=== PATIENT | female | born 1955 | race Caucasian/White ===

== ENCOUNTER 2025-04-10 07:46 | Emergency (ER) | payer MEDICARE, BC ==
[~2025-04-10] VITALS: Ht 167.6 cm; Wt 73.0 kg
[~2025-04-10 07:46] MED LIST: ATOR10TA87 PO; CELE-193 PO; ESCI20TA29 PO; FAMO10TA PO; OMEG1CAP61 PO
[2025-04-10 08:07] VITALS: TEMP 98.4
--- NOTE | 2025-04-10 08:26 | Physician Documentation ---
History of Present Illness ~ Chief Complaint: Allergic Reaction Stated Complaint: BEE STING Time Seen by MD: 08:09 Source: patient (8) Mode of Arrival: Ambulatory HPI Patient comes in for evaluation of to wasp stings to her right arm. She had previously had a history of reactions to stings, but did not have an EpiPen with her. The stings occurred last night at 7:00 p.m., patient reports local redness and swelling and pain but no facial swelling, no shortness a breath, no faintne ss or any other systemic injury. She took Benadryl, cortisone, and used ice, and was coming in for concern for possible infection. Medication Reconciliation Allergies: Coded Allergies: dupilumab (Verified Allergy, Intermediate, Rash, 04/10/25) hydromorphone (Verified Allergy, Intermediate, SEVERE RASH, 10/31/12) Scheduled Atorvastatin Calcium* (Lipitor*), 10 MG PO DAILY, (Reported) Celecoxib* (Celebrex*), 200 MG PO BID, (Reported) Escitalopram Oxalate* (Lexapro*), 20 MG PO DAILY, (Reported) Lennon-3 Acid Ethyl Esters* (Lovaza*), 2 GM PO BID, (Reported) Miscellaneous Medications Famotidine (Acid Journeyman Molder), 10 MG PO, (Reported) Past Medical History Past Medical History: High Cholesterol, *MUSCULOSKELETAL* (Psoriatic arthritis) Smoking Status: Light Tobacco User (Vapes) Alcohol Use: Occasionally Drug Use: marijuana Review of Systems All Other Systems at this time: Reviewed and Negative Physical Exam Vital Signs: Temperature: 98.4, Source: Oral, Heart Rate: 61, Respiratory Rate: 18, BP: 129/84, Pulse Oximetry: 98, Weight: 72.950 Oxygen Flow Rate: 0 Physical Exam General: Pt is awake, alert, oriented x4 in no acute distress and well appearing. Head: Normocephalic and atraumatic. Eyes: Conjunctiva normal. ENT: Mucous membranes moist. Neck: Supple. Chest: Clear to auscultation bilaterally, without rales, rhonchi, or wheezes. There is no accessory muscle use or retractions. Cardiac: Regular rate and rhythm without murmurs, gallops or rubs. Palpation of the chest wall is normal. Abd: Soft, nondistended, nontender, with normoactive bowel sounds. No guarding or rebound. Extremities: Within normal limits without cyanosis, clubbing, or edema. Skin: [place], warm and dry with no significant rash appreciated. She has a well demarcated area over her right elbow both proximally and distally to the olecranon which has some urticarial characteristics, with intradermal edema and erythema. This is slightly raised, no surrounding cellulitis noted. Neuro: Cranial nerves II-XII grossly intact. Motor and sensory intact in the hand in the median/radial/ulnar nerve distribution. The gait is normal. Progress Results/Orders Results/Orders Orders - BRAXTON DOUGLAS MD Ortho Orders (04/10/25 08:22) Vital Signs 04/10/25 04/10/25 04/10/25 07:46 08:00 08:07 Temp 97.2 98.4 Pulse 60 61 Resp 15 18 B/P (MAP) 157/77 129/84 (99) Pulse Ox 98 98 O2 Flow Rate 0 Re-Evaluation Re-Evaluation : Re-Evaluation Time: 08:23 Progress Erythematous area demarcated with a skin pen Medical Decision Making Differential Diagnosis Patient presenting status post significant insect envenomation with local reaction. There was no evidence for cellulitis, and it is temporarily too early to be seeing cellulitis, although the local reaction is impressive. No systemic symptoms or anaphylaxis. Patient is already taking Benadryl using ice and using cortisone cream, which should help. She is made to understand that there was no evidence for infection at this time but she should watch for any extension of the erythema beyond the demarcated borders. I will provide her with an EpiPen for her use at home especially if she should gets done again in the near future. Departure Time of Disposition: 08:24 Disposition: 01 HOME / SELF CARE / HOMELESS Impression: Primary Impression: Local reaction to insect sting Qualified Codes: T63.484A - Toxic effect of venom of other arthropod, undetermined, initial encounter Condition: Stable Discharge Instructions: Insect Bite, Adult Additional Instructions: Continue Benadryl, cortisone, and ice. Watch for any spread of redness beyond the demarcated line, return to the emergency department if any worsening or any another new concerns. Referrals: NO PRIMARY CARE PROVIDER (PCP) Prescriptions Epinephrine (Epipen 2-Fernandez) 0.3 Mg/0.3 Ml Auto.injct 1 SYR IM ONCE PRN for allergies for 1 Day, #1 PKT 0 Refills Prov: BRAXTON DOUGLAS MD 04/10/25 Education Educated: Patient Educated regarding: diagnosis, treatment Signature Scribe Signature: Attestation: BRAXTON DOUGLAS MD Apr 10, 2025 08:26
[2025-04-10] MEDS ORDERED: EPIN0.3P3 IM (08:28)
[2025-04-10 08:37] VITALS: BP 148/75; PULSE 63; RESP 16; O2SAT 97
== END 2025-04-10 08:47 | disposition home or self-care (01) ==
LOC: ER 07:46
DX: T63.481A Toxic effect of venom of other arthropod, accidental (unintentional), initial encounter (principal); E78.00 Pure hypercholesterolemia, unspecified; F12.90 Cannabis use, unspecified, uncomplicated; F17.290 Nicotine dependence, other tobacco product, uncomplicated; Z88.5 Allergy status to narcotic agent; Z88.8 Allergy status to other drugs, medicaments and biological substances; X58.XXXA Exposure to other specified factors, initial encounter; Y93.89 Activity, other specified; Y92.89 Other specified places as the place of occurrence of the external cause; Y99.8 Other external cause status
CPT/HCPCS: 99282; A6449